=== PATIENT | male | born 2000 | race Caucasian/White ===

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

== ENCOUNTER 2024-04-10 17:17 | Emergency (ER) | payer MEDICAID, SELFPAY ==
[2024-04-10 17:17] VITALS: BP 118/81; PULSE 104; RESP 18; TEMP 36.8; O2SAT 99; BMI 22.8
--- NOTE | 2024-04-10 18:24 | ED.RN ---
Pt's mother states she thinks pt is fine, they will be going home. Pt ambulated out of dept without difficulty.
== END 2024-04-10 18:00 | disposition left against medical advice (07) ==
LOC: ED 18:28
DX: Z53.21 Procedure and treatment not carried out due to patient leaving prior to being seen by health care provider (principal)

== ENCOUNTER 2024-06-09 01:19 | Emergency (ER) | payer SELFPAY ==
[2024-06-09 01:19] VITALS: BP 146/86; PULSE 105; RESP 18; TEMP 36.6; O2SAT 100; BMI 18.8
--- NOTE | 2024-06-09 01:32 | EKG12_ITS ---
Test Reason : DYSRHYTHMIA Blood Pressure : */* mmHG Vent. Rate : 98 BPM Atrial Rate : 98 BPM P-R Int : 150 ms QRS Dur : 100 ms QT Int : 332 ms P-R-T Axes : 67 79 36 degrees QTcB Int : 423 ms Normal sinus rhythm Normal ECG Confirmed by JEFFY CHRISTIANSEN, KARYN ([id number]), publication editor JUANCHO RODRIGUEZ ([id number]) on 06/11/2024 11:04:10 AM Referred By: Confirmed By: KARYN BARDALES MD
--- NOTE | 2024-06-09 01:45 | RAD_ITS ---
PROCEDURE: CHEST PA AND LATERAL 06/09/2024 REASON FOR EXAM: ACUTE SHORTNESS OF BREATH, TACHYCARDIA TECHNIQUE: PA and lateral views of the chest. COMPARISON: None. FINDINGS: The lungs are clear. Pulmonary vascularity is within limits. No pneumothorax or pleural effusion. The cardiac and mediastinal contours are within limits. The visualized osseous structures appear within limits. RAD/Chest PA and Lateral IMPRESSION: No evidence of acute disease. Reading Location: [id number]
--- NOTE | 2024-06-09 01:48 | EX.ED.DYSGE1 ---
HPI History of Present Illness Chief Complaint: Chest Pain PFSH PFSH Medical History no medical history Allergy/AdvReac Type Severity Reaction Status Date / Time No Known Allergies Allergy Verified 06/09/24 01:23 Social History Smoking Status: Never smoker ROS ROS ED Constitutional Constitutional ED: Denies chills, fever(s), subjective, sweats or weight loss Eyes Eyes: Denies blurry vision or change in vision ENT ENT ED: Denies ear pain, rhinorrhea or sore throat Cardiovascular Cardiovascular: Reports chest pain and other Details: Patient states he feels like there is a blockage anterior left chest. ; Denies orthopnea, palpitations, paroxysmal nocturnal dyspnea or racing heartbeat Respiratory/Chest Respiratory/Chest: Reports dyspnea; Denies cough, dyspnea on exertion, orthopnea, paroxysmal nocturnal dyspnea or sputum Gastrointestinal Gastrointestinal: Reports nausea; Denies abdominal pain, melena or vomiting Genitourinary Genitourinary ED: Denies dysuria, hematuria or urinary frequency Musculoskeletal Musculoskeletal: Denies arthralgias or myalgias Integumentary Denies abscess or rash Neurologic Neurologic: Reports paresthesias RUE, RLE, LUE and LLE; Denies headache(s) Psychiatric Psychiatric: Reports anxiety Endocrine Endocrinology: Denies cold intolerance or heat intolerance Hematologic/Lymphatic Hematologic/Lymphatic: Reports systems reviewed and no addt'l complaints, except as documented EXAM Physical Exam Const Vital Signs: 06/09/24 01:19 Temperature 97.9 F Temperature Source Temporal Pulse Rate 105 H Respiratory Rate 18 Blood Pressure 146/86 H Blood Pressure Mean 106 Pulse Ox 100 Oxygen Delivery Method Room Air Positive well nourished and well developed Constitutional Narrative: Patient is pale anxious and ill-appearing. He is tachycardic. He is not hypoxic. Blood pressure is elevated. He is not diaphoretic or cyanotic. General Appearance ED: well developed and pallor HEENT HEENT Narrative: Head is atraumatic no cephalic. Ears normal. Nares patent. Posterior pharynx normal. Uvula is midline. No deviation of the tongue with protrusion. Patient had bilateral Chvostek sign. Eyes PERRL and EOMs intact bilaterally General Eye ED: Negative for pale conjunctiva or scleral icterus Neck no lymphadenopathy, supple and no JVD Chest Wall inspection of chest normal and palpation of chest normal Resp normal respiratory effort and clear to auscultation bilaterally Cardio regular rhythm, S1 normal heart sound, S2 normal heart sound and no murmurs Rate: tachycardic GI normal to inspection, nondistended, normoactive bowel sounds, non-tender, non-distended and no masses; Negative for hepatosplenomegaly Extremity normal to inspection Extremity Narrative: There is no asymmetry, swelling, discoloration, leg vein distention, palpable cords or tenderness along the distribution of the deep venous system. General Extremety ED: Negative for edema or tenderness General Extremity: Negative for edema Neuro oriented x3, CN's II-XII intact bilaterally and no sensory deficits noted Sensorium / Orientation: alert Motor Exam: strength 5/5 throughout Psych Mood & Affect: anxious Skin no rashes or lesions noted, no wounds and skin turgor normal General Skin Exam: elasticity normal and pallor; Negative for jaundice MDM MDM MDM Narrative Medical decision making narrative: Differential diagnosis is anxiety/panic attack, hyperventilation, pneumothorax, pulmonary embolus. Appropriate blood work was obtained as well as chest x-ray and EKG. D-dimer was obtained since he is not PERC negative. History & Record Review Additional record(s) reviewed:: Prior outpatient record (Orthopedic note for left knee issue.) and Prior ED visit (2019 for cervical pain.) Lab Data Attestation: I reviewed the patient's lab results. Lab results narrative: CBC is unremarkable. Basic metabolic panel is unremarkable. Glucose is elevated 149 with normal CO2 anion gap. Lactate elevated 2.2. D-dimer is less than 0.27. Labs: Laboratory Results - last 24 hr 06/09/24 02:09 WBC 7.2 RBC 4.36 L Hgb 13.8 Hct 38.6 L MCV 88.5 MCH 31.7 MCHC 35.8 RDW Std Deviation 40.0 RDW Coeff of Leann 12.2 Plt Count 227 MPV 8.6 Immature Gran % (Auto) 0.300 Neut % (Auto) 50.7 Lymph % (Auto) 37.1 Robeson % (Auto) 9.5 Eos % (Auto) 1.8 Baso % (Auto) 0.6 Absolute Neuts (auto) 3.6 Absolute Lymphs (auto) 2.65 Nucleated RBC % 0 D-Dimer Quant (PE/DVT) < 0.27 L Sodium 135 Potassium 2.9 L Chloride 99 Carbon Dioxide 21.7 Anion Gap 14 BUN 10 Creatinine 0.90 Estim Creat Clear Calc 108.35 Est GFR (MDRD) Non-Af 124 BUN/Creatinine Ratio 11.5 Glucose 149 H Lactic Acid 2.2 H* Calcium 8.9 Radiography Chest X-Ray - ED: 2 View, Read by ED Physician (Interpreted by me at 0149.), Normal, Heart, Lungs, Mediastinum, Bony Structures and No Acute Disease Diagnostic Testing: Clinical Impression(s) from Imaging Studies Chest X-Ray 06/09/24 01:45 IMPRESSION: No evidence of acute disease. Reading Location: [facility] Discharge Plan Triage Chief Complaint: Chest Pain ED Provider: Seth Richter Dx/Rx/DC Orders Clinical Impression: Acute hyperventilation syndrome, Anxiety reaction, Sinus tachycardia seen on cardiac exercise specialist, Elevated blood-pressure reading without diagnosis of hypertension Instructions: ED Hyperventilation Syndrome Primary Care Provider: Care Physician,No Primary Referrals: Farzana Rodrigues [facility] [Provider Group] - As Needed Care Physician,No Primary [Primary Care Provider] - Print Language: French Disposition Disposition: Home, Self Care
[2024-06-09 02:20] LABS: Absolute Lymphocyte Count 2.65 X10^3/uL (0.83-4.51); Absolute Neutrophil Count 3.6 X10^3/uL (2.0-7.7); Basophil# 0.04 X10^3/uL; Basophil% 0.6 % (0-1); Eosinophil# 0.13 X10^3/uL; Eosinophils% 1.8 % (0-5); Hematocrit 38.6 % (40-54); Hemoglobin 13.8 g/dL (13.0-16.5); Lymphocyte # 2.65 X10^3/ul (0.83-4.51); Lymphocyte % 37.1 % (19-41); Mean Corp Hgb Conc 35.8 g/dL (32-36); Mean Corpuscular Hgb 31.7 pg (27.0-32.0); Mean Corpuscular Volume 88.5 fL (80-94); Mean Platelet Vol. 8.6 fl (6.2-12.0); Monocyte# 0.68 X10^3/uL; Monocyte% 9.5 % (0-10); NRBC Flagged by Analyzer 0 % (0-5); Neutrophil # 3.63 X10^3/uL (2.7-7.7); Neutrophil % 50.7 % (47-70); Platelet Count 227 K/mm3 (150-450); RBC Distribution Width CV 12.2 % (11.6-14.6); Red Blood Count 4.36 M/mm3 (4.6-6.2); White Blood Count 7.2 K/mm3 (4.4-11.0)
[2024-06-09 02:45] LABS: Anion Gap 14 (5-15); BUN 10 mg/dL (4-19); BUN/Creat Ratio 11.5 RATIO (10-20); Calcium,Total 8.9 mg/dL (7.6-11.0); Carbon Dioxide 21.7 mmol/L (21.0-32.0); Chloride 99 mmol/L (98-108); EST Glomerular Filtration Rate 124 (>60); Estimated Creatinine Clearance 108.35 ml/min (50-250); Glucose 149 mg/dL (70-99); Potassium 2.9 mmol/L (3.3-5.1); Sodium Level 135 mmol/L (133-145)
[2024-06-09 02:47] LABS: Lactic Acid 2.2 mmol/L (0.0-2.0)
[2024-06-09 02:56] LABS: D-Dimer Quantitative (DVT/PE) < 0.27 FEU/ug/m (0.27-0.49)
[2024-06-09 04:02] VITALS: BP 114/76; PULSE 69; RESP 16; TEMP 36.3; O2SAT 98
== END 2024-06-09 04:02 | disposition home or self-care (01) ==
PROVIDERS: Emergency Provider Emergency Medicine; Visit Provider Emergency Medicine
DX: R06.4 Hyperventilation (principal); F41.1 Generalized anxiety disorder; R03.0 Elevated blood-pressure reading, without diagnosis of hypertension; R00.0 Tachycardia, unspecified
CPT/HCPCS: 71046; 80048; 83605; 85025; 85379; 93005; 99284; A4216